=== PATIENT | male | born 1945 | race Caucasian/White ===

== ENCOUNTER 2020-03-08 09:27 | Inpatient (IN) | payer MEDICARE, OTHER ==
[~2020-03-08] VITALS: Ht 170.2 cm; Wt 132.1 kg
[2020-03-08] VITALS (35 sets, daily range): BP systolic 89–125; BP diastolic 59–83
[2020-03-08] MEDS ORDERED: methylPREDNISolone SOD SUCC 125 MG/2 ML VL IV ONE ×2 (09:45→12:45)
[2020-03-08] MEDS ORDERED: cefTRIAXone 1GM/50ML D5W 50 ML IV ONE (09:45)
[2020-03-08] MEDS ORDERED: NOREPINEPHRINE 8 MG/250ML KIT 250 ML IV ONE (10:17)
[2020-03-08 10:32] LABS: Basophils # (auto) 0.1 10 ^3/uL (0-0.2); Basophils % (auto) 0.4 % (0.0-2.0); Eosinophils # (auto) 0 10 ^3/uL (0-0.8); Hemoglobin 13.5 g/dL (13.5-17.5); Lymphocytes # (auto) 0.3 10 ^3/uL (0.4-5.4); Lymphocytes % (auto) 2.3 % (10.0-50.0); Mean Corpuscular Hemoglobin 30.7 pg (28.0-32.0); Mean Corpuscular Hgb Conc. 33.9 g/dL (32.0-36.0); Mean Corpuscular Volume 90.6 fL (80.0-100.0); Monocytes # (auto) 0.7 10 ^3/uL (0-1.3); Monocytes % (auto) 5.3 % (0.0-12.0); Neutrophils # (auto) 12.3 10 ^3/uL (1.6-8.6); Platelet Count (auto) 245 10^3/uL (140-450); Red Blood Cells 4.41 10^6/uL (4.5-5.90); Red Cell Distribution Width 15.9 % (11.8-14.3); White Blood Cell 13.3 10^3/uL (4.4-10.8)
[2020-03-08 10:39] LABS: Calcium 8.2 mg/dL (8.5-10.1); Magnesium 1.9 mg/dL (1.6-2.6); Potassium 4.3 mmol/L (3.5-5.1)
[2020-03-08] MEDS: NOREPINEPHRINE 8 MG/250ML KIT 250 ML IV SCH (10:47)
[2020-03-08 10:48] LABS: BUN/Creatinine Ratio 10.1; Bilirubin, Total 4.1 mg/dL (0.2-1.0); CRP High Sensitivity 2.96 mg/dL (< 0.3); Total Protein 7.9 g/dL (6.4-8.2)
[2020-03-08] MEDS ORDERED: MORPHINE SULF INJ 2 MG/ML SYRINGE 1ML IV PRN (11:45)
[2020-03-08] MEDS ORDERED: NITROGLYCERIN 0.4 MG SL TAB SL PRN (11:45)
[2020-03-08] MEDS ORDERED: SODIUM CHLORIDE 0.9% 500 ML IV ONE (11:45)
[2020-03-08] MEDS ORDERED: METOPROLOL TARTRATE 1MG/1ML-5ML VIAL IV PRN (11:45)
[2020-03-08 11:47] LABS: Lactic Acid w/Reflex 2.5 mmol/L (0.4-2.0)
[2020-03-08] MEDS ORDERED: DIGOXIN (250MCG/ML) 2 ML AMPULE IV ONE (12:00)
[2020-03-08] MEDS ORDERED: AMIODARONE HCL 150 MG in D5W 5% 100 ML IV ONE (12:00)
[2020-03-08] MEDS ORDERED: AMIODARONE 450mg/250ml AE 250 ML IV ONE (12:15)
[2020-03-08] MEDS ORDERED: VANCOMYCIN PER PHARMACY 0 MG IV SCH (12:45)
[2020-03-08] MEDS ORDERED: PIPERACILLIN-TAZOB 2.25GM 50 ML IV ONE (12:45)
[2020-03-08] MEDS ORDERED: ACETAMINOPHEN 500 MG TAB PO PRN (12:45)
[2020-03-08] MEDS ORDERED: LORazepam 2MG/ML-1ML VIAL IV PRN (12:45)
[2020-03-08] MEDS ORDERED: SODIUM CHLORIDE 0.9% 1,000 ML IV SCH (12:45)
[2020-03-08] MEDS ORDERED: MORPHINE SULFATE 4 MG/ML SYR/VIAL IV PRN (12:45)
[2020-03-08] MEDS ORDERED: THIAMINE 100mg/ml INJ (200mg/2ml VIAL) IM ONE (13:00)
[2020-03-08] MEDS ORDERED: ONDANSETRON HCL 4 MG/2 ML VIAL IV PRN (13:00)
[2020-03-08] MEDS ORDERED: DEXTROSE (50%) 50ML SYRG IV PRN (13:15)
[2020-03-08] MEDS ORDERED: ENOXAPARIN SOD 150 MG/1 ML SYRINGE SC ONE (13:15)
[2020-03-08] MEDS ORDERED: VANCOMYCIN 1GM/250ML 250 ML IV ONE (14:00)
[2020-03-08] MEDS ORDERED: ALBUTEROL SULF HFA 90MCG INH 200DOSE IN SCH (14:00)
[2020-03-08] MEDS: methylPREDNISolone SOD SUCC 40 MG/ML VL IV SCH ×2 (14:22→22:00)
[2020-03-08] MEDS ORDERED: THIAMINE 100mg/ml INJ (200mg/2ml VIAL) IV ONE (14:30)
--- NOTE | 2020-03-08 14:50 | NUR ---
See report from ER record in notes.
--- NOTE | 2020-03-08 14:50 | NUR ---
Patients tejeda catheter flushing, reinserted and repositioned to assess patency. Patient has been oliguric since arrival.
--- NOTE | 2020-03-08 14:50 | NUR ---
Patient arrived from ER COVUT 19 isolation transportation. Patient on BIPAP, AO x4, though drowsy. Patient in afib whtih HR 103 RR 30 SPO2 91% BP 101/59 Temp of 98.7F. CHG wipes for central line and midline care, tejeda catheter care and optifoam on sacrum for skin integrity. Lower extremities wounds bilater with feet/toes thick yellow skin. Personal belongings in room.
--- NOTE | 2020-03-08 15:00 | NUR ---
Oral care completed.
--- NOTE | 2020-03-08 15:00 | NUR ---
Oral care completed.
--- NOTE | 2020-03-08 16:00 | NUR ---
Oral care completed.
--- NOTE | 2020-03-08 16:00 | NUR ---
Patient in bed, drowsy but easily arousable. Patient states he has 0/10 pain level. Patient tolerating BIPAP well.
--- NOTE | 2020-03-08 16:27 | NUR ---
RN removed bilateral lower extremity wound dressing to take pictures, redress and clean wounds.
[2020-03-08] MEDS: FUROSEMIDE 20 MG/2 ML VIAL IV SCH (16:54)
--- NOTE | 2020-03-08 17:00 | NUR ---
Son called for update, updated on status. Per son okay to be intubated.
--- NOTE | 2020-03-08 17:30 | NUR ---
Patient calm on Bipap, resting comfortably in no signs of distress. Patient reports 0/10 pain.
[2020-03-08] MEDS ORDERED: ASPI-498 PO (17:42)
[2020-03-08] MEDS ORDERED: SPIR25TA8 PO (17:42)
[2020-03-08] MEDS ORDERED: ATOR20TA50 PO (17:42)
[2020-03-08] MEDS ORDERED: SILD100T73 PO (17:42)
[2020-03-08] MEDS ORDERED: SACU1TAB PO (17:42)
[2020-03-08] MEDS ORDERED: FURO40TA4 PO (17:42)
[2020-03-08] MEDS ORDERED: CHOLCAP11 PO (17:42)
[2020-03-08] MEDS ORDERED: DABI150C5 PO (17:42)
[2020-03-08] MEDS ORDERED: PRAZ2CAP PO (17:42)
[2020-03-08] MEDS ORDERED: CARV12.544 PO (17:42)
[2020-03-08] MEDS: InsuLIN REG 1unit/0.01ml Soln (100units/ml) SC SCH (18:00)
[2020-03-08] MEDS: ACCU-CHEK COMFORT CURVE STRIP VI SCH (18:00)
--- NOTE | 2020-03-08 18:00 | NUR ---
Paged Dr. Garcia.
--- NOTE | 2020-03-08 18:00 | NUR ---
Oral care completed. Patient repositioned.
--- NOTE | 2020-03-08 18:00 | NUR ---
Patient stated [facility] and between his son and roommate they are trying to get it to the unit.
[2020-03-08] MEDS ORDERED: AMIODARONE 450mg/250ml AE 250 ML IV SCH (18:15)
--- NOTE | 2020-03-08 18:30 | NUR ---
RN spoke with son on phone, he is unaware of medications patient takes on daily basis, he is [facility] to [facility].
--- NOTE | 2020-03-08 19:18 | NUR ---
RN spoke with Nichole RAMIREZ ER, regarding orders for Amiodarone IV, Per Nichole the physician did not clarify the specific protocol or order. The physician has not seen the patient yet and per his answering service, he will be out of surgery in two hours. P.M. RN bedside, endorsed to speak with physician.
--- NOTE | 2020-03-08 19:30 | NUR ---
Report given to Fabricio RAMIREZ Patient remians on BiPAP, SPO2 90%, RR 28, non labored breathing. Patient remains in Afib with rate o 85-103, orders for Amiodarone after the current bag will be confirmed with investment accountant after he is out of surgery. Patients orientation had increased since arrival on unit, AO x3 person, situation, place. Patient is unable to eat d/t Bipap. Oral care completed. Tavarez catheter to gravity, 450 ml output. BM small smear, active bowel sounds. Patient has lower extremity wounds, wound consult order. Patient is calm and tolerating BIPAP well.
--- NOTE | 2020-03-08 19:56 | NUR ---
Per Dr. Garcia, patient is to be on Amiodarone protocol, 24 hours. Also new order for Pulmonary Consult, Dr. Byers is on unit and will see patient.
[2020-03-08] MEDS: PIPERACILLIN-TAZOB 3.375GM 100 ML IV SCH (20:06)
[2020-03-08] MEDS: AMIODARONE 450mg/250ml AE 250 ML IV SCH (21:09)
[2020-03-08] MEDS ORDERED: ENOXAPARIN SOD 150 MG/1 ML SYRINGE SC SCH (22:00)
[2020-03-08] MEDS ORDERED: BUDESONIDE (INHALATION) 180 MCG IH IN SCH (22:00)
[2020-03-08] MEDS: ATORVASTATIN 20 MG TAB PO SCH (22:00)
[2020-03-08] MEDS: FAMOTIDINE (10MG/ML) 2ML VL IV SCH (22:00)
--- NOTE | 2020-03-08 23:00 | NUR ---
Respiratory note: PT TAKEN OFF BIPAP AT THIS TIME. PLACED PT ON A 15L NRB MASK AT FIRST AND SP02 WAS 100%. PT TITRATED DOWN TO AN OXYMIZER AT 6L AND TOLERATING WELL. HR 95 RR 26 SP02 96%. PT STATING THAT HIS BREATHING FEELS GOOD AND GAVE A THUMBS UP. HE IS AWARE TO CALL FOR RN OR RT IF ANY ISSUES WITH HIS BREATHING OCCUR.
[2020-03-09] VITALS (89 sets, daily range): BP systolic 85–132; BP diastolic 46–95
[2020-03-09] MEDS: InsuLIN REG 1unit/0.01ml Soln (100units/ml) SC SCH ×4 (00:59→18:23)
[2020-03-09] MEDS: PIPERACILLIN-TAZOB 3.375GM 100 ML IV SCH ×4 (01:00→18:13)
[2020-03-09 04:04] LABS: Basophils # (auto) 0 10 ^3/uL (0-0.2); Basophils % (auto) 0.1 % (0.0-2.0); Eosinophils # (auto) 0 10 ^3/uL (0-0.8); Hematocrit 42.4 % (41.0-53.0); Hemoglobin 14.6 g/dL (13.5-17.5); Lymphocytes # (auto) 0.4 10 ^3/uL (0.4-5.4); Lymphocytes % (auto) 2.8 % (10.0-50.0); Mean Corpuscular Hemoglobin 31.3 pg (28.0-32.0); Mean Corpuscular Hgb Conc. 34.4 g/dL (32.0-36.0); Mean Corpuscular Volume 90.9 fL (80.0-100.0); Monocytes # (auto) 0.4 10 ^3/uL (0-1.3); Monocytes % (auto) 2.4 % (0.0-12.0); Neutrophils % (auto) 94.7 % (37.0-80.0); Nucleated Red Blood Cells % 0.1 %; Platelet Count (auto) 238 10^3/uL (140-450); Red Blood Cells 4.67 10^6/uL (4.5-5.90); Red Cell Distribution Width 16.2 % (11.8-14.3); White Blood Cell 14.8 10^3/uL (4.4-10.8)
[2020-03-09 04:21] LABS: Potassium 4.1 mmol/L (3.5-5.1)
[2020-03-09 04:31] LABS: Albumin 2.8 g/dL (3.4-5.0); BUN/Creatinine Ratio 13.4; Bilirubin, Total 3.6 mg/dL (0.2-1.0); Total Protein 7.8 g/dL (6.4-8.2)
[2020-03-09] MEDS ORDERED: VANCOMYCIN 1GM/250ML 250 ML IV SCH (06:00)
[2020-03-09] MEDS: FUROSEMIDE 20 MG/2 ML VIAL IV SCH ×2 (06:28→18:13)
[2020-03-09] MEDS: ACCU-CHEK COMFORT CURVE STRIP VI SCH ×4 (06:29→18:14)
[2020-03-09] MEDS: methylPREDNISolone SOD SUCC 40 MG/ML VL IV SCH (06:29)
--- NOTE | 2020-03-09 07:05 | NUR ---
Respiratory note: ORDER FOR MORNING ABG. PT IS REFUSING ABG. EDUCATED PT ON TEST AND WHY IT IS BENEFICIAL. PT STILL REFUSING. RN AWARE.
--- NOTE | 2020-03-09 08:30 | NUR ---
UNABLE TO OBTAIN TEMP ON PATIENT THIS AM - DAVIDSON ROY - WILL CONTINUE TO MONITOR TEMP.
--- NOTE | 2020-03-09 08:45 | NUR ---
DR GAUTHIER VISITS AND EXAMINES PATIENT - ORDERS RECEIVED.
[2020-03-09] MEDS ORDERED: ASCORBIC ACID 1,000 MG TAB PO SCH (10:00)
[2020-03-09] MEDS ORDERED: ZINC SULFATE 220mg CAP or TAB PO SCH (10:00)
[2020-03-09] MEDS ORDERED: CHOLECALCIFEROL (VITD3) 2,000 UNIT CAP PO SCH (10:00)
[2020-03-09] MEDS: NOREPINEPHRINE 8 MG/250ML KIT 250 ML IV SCH (10:15)
[2020-03-09] MEDS: FAMOTIDINE (10MG/ML) 2ML VL IV SCH ×2 (10:22→21:55)
[2020-03-09] MEDS: THIAMINE 100mg/ml INJ (200mg/2ml VIAL) IV SCH (10:23)
[2020-03-09] MEDS: AMIODARONE HCL 200 MG TAB PO SCH ×2 (10:27→21:55)
--- NOTE | 2020-03-09 10:30 | NUR ---
DR HOUSER VISITS AND EXAMINES PATIENT - ORDERS RECEIVED.
[2020-03-09] MEDS: AMIODARONE 450mg/250ml AE 250 ML IV SCH (10:34)
[2020-03-09] MEDS ORDERED: DOXYCYCLINE 100MG/250ML 250 ML IV SCH (10:45)
[2020-03-09] MEDS ORDERED: ENOXAPARIN SOD 150 MG/1 ML SYRINGE SC ONE (11:00)
--- NOTE | 2020-03-09 13:30 | NUR ---
DR RIBERA VISITS AND EXAMINES PATIENT - NO ORDERS RECEIVED.
--- NOTE | 2020-03-09 14:00 | NUR ---
TEMP NORMOTHERMIC - BEAR HUGGER REMOVED.
--- NOTE | 2020-03-09 14:15 | NUR ---
WOUND CARE NOTE: WOUND CARE IN TO SEE PATIENT PER WOUND CARE REQUEST. PATIENT ADMITTED TO [facility] FOR SUSPECTED SEPSIS SECONDARY TO ACUTE BILATERAL PNEUMONIA, RULE OUT COVID-19 INFECTION. BEDSIDE NURSE NOTED SKIN INTEGRITY ISSUES UPON ADMISSION. PHOTOGRAPHS TAKEN AT THAT TIME FOR REFERENCE. PATIENT HEATHER SCORE IS 13. PATIENT NOTED TO HAVE STASIS ULCERS TO BILATERAL SHINS, SKIN TEAR TO RIGHT KNEE, AND BLANCHABLE REDNESS TO SACRUM. LEFT DE [place] STASIS ULCER COVERED WITH THERAHONEY AND OPTIFOAM GENTLE DRESSING. RIGHT [place] LEFT OPEN TO AIR. RIGHT KNEE COVERED WITH THERAHONEY AND OPTIFOAM GENTLE DRESSING. SACRUM COVERED WITH ZGUARD AND OPTIFOAM GENTLE SACRAL DRESSING. ALL WOUND STATS CAN BE FOUND IN ATTACHED ASSESSMENT. RECOMMEND: FREQUENT Q2HOUR REPOSITIONING CONDITION PERMITS. REDISTRIBUTE PRESSURE UTILIZING PILLOWS AND WEDGES. DAILY/PRN DRESSING CHANGE TO LEFT DE [place], RIGHT KNEE AND SACRUM. SKIN/WOUND CARE PLAN. CONTINUED MONITORING BY WOUND CARE TEAM. Addendum: 03/09/20 at 1619 by HALLIE CASH RN RN Amended: Links added.
--- NOTE | 2020-03-09 20:05 | NUR ---
DR WASHINGTON AT BEDSIDE. NO NEW ORDERS
[2020-03-09] MEDS: ATORVASTATIN 20 MG TAB PO SCH (21:55)
[2020-03-09] MEDS: DABIGATRAN 75 MG CAP PO SCH (21:56)
[2020-03-10] VITALS (55 sets, daily range): BP systolic 96–131; BP diastolic 61–92
--- NOTE | 2020-03-10 00:44 | NUR ---
CARES FULL BED LINEN CHANGE, APPLIED OPTIFOAM TO SACRUM, WOUND CARE PROVIDED ORDERED MINUS UNNA BOOT (WILL REINFORCE TO DAY SHIFT RN TO ASK WOUND CARE NURSE TO BRING UNNA BOOTS.) PATIENT WAS ABLE TO GET OUT BED WITH ASSIST AND BALANCE HIMSELF ON HIS OWN FEET WHILE HOLDING ONTO BED RAIL. PATIENT DID HAVE LABORED BREATHING WITH PHYSICAL EXERTION, IT TOOK 15 MIN TO RECOVER TO HIS BASELINE. PATIENT HAD TWO LIQUID BROWN BOWEL MOVEMENT SINCE THE BEGINNING OF [facility] SOLUTION ARCHITECT, PATIENT CALLS TO USE BEDPAN. PATIENT RESTING IN BED WATCHING TV, CALL LIGHT WITHIN REACH, VERBALIZED UNDERSTANDING TO CALL IF HE NEEDS ANYTHING.
[2020-03-10] MEDS: PIPERACILLIN-TAZOB 3.375GM 100 ML IV SCH ×4 (00:48→18:53)
[2020-03-10] MEDS: InsuLIN REG 1unit/0.01ml Soln (100units/ml) SC SCH ×4 (00:49→18:00)
--- NOTE | 2020-03-10 01:30 | NUR ---
SENT WOUND CULTURES TO LAB COLLECTED CULTURES FROM RIGHT AND LEFT LEG.
--- NOTE | 2020-03-10 02:00 | NUR ---
ADMISSION PATIENT UNABLE TO RECALL FAMILY HISTORY, STATES THAT HIS PARENTS PAST WHEN HE WAS YOUNG.
--- NOTE | 2020-03-10 02:11 | NUR ---
PATIENT OUT OF BED, SITTING IN A CHAIR. TRANSFERRED FROM BED INTO CHAIR WITH MODERATE ASSISTANCE.
[2020-03-10] MEDS: DOXYCYCLINE 100MG/250ML 250 ML IV SCH ×2 (03:10→15:00)
--- NOTE | 2020-03-10 04:20 | NUR ---
MAROON BLOOD AND BLOOD CLOTS NOTED IN [place]. URINE WAS DARK BARBARA IN A BEGINNING OF THE SHIFT. WILL NOTIFY DAY SHIFT RN OF FINDING.
[2020-03-10] MEDS: FUROSEMIDE 20 MG/2 ML VIAL IV SCH (05:38)
[2020-03-10] MEDS: ACCU-CHEK COMFORT CURVE STRIP VI SCH ×4 (05:40→18:00)
--- NOTE | 2020-03-10 06:49 | NUR ---
RECEIVED PT OFF BIPAP ON 6L OXYMIZER WITH SPO2 96%, HR 79, RR 18, BP 116/79 CLEAR/DIMINISHED BS WITH NO DISTRESS NOTED. WILL CONTINUE TO MONITOR PT.
--- NOTE | 2020-03-10 07:00 | NUR ---
ABG, patient refused Per p.m. nurse, patient has had ABG injury to his wrist and refused ABG during p.m. shift, Dr. Regalado aware, no further ABG's at this time.
--- NOTE | 2020-03-10 07:00 | NUR ---
REPORT RN received bedside report from Marcelino RAMIREZ. Patien up to chair, in no signs of distress, watching televisiion. Patient on Oxymizer 6L, SPO2 96%, RR 25. No longer on Amiodarone or Levophed, HR 79, afib controlled. Patient had two BM liquid brown stools on p.m. shift. Tavarez catheter to gravity, clear yellow urine, output pm. shift 950 ml, patient is on Lasix. Patient seen by wound nurse and match maker. Wound care orders for bilateral lower extremities. IV access: right femoral groin central line 3x lumen, and right upper arm midline. Zosyn at 33.33 ml/hr infusing at this time.
--- NOTE | 2020-03-10 08:00 | NUR ---
Patient up to chair, states he feels he can breathe and urinate better when in chair. Patient alert, oriented and calm. Patients skin color, respiratory pattern and energy is where the patient states he usually feels. RN completed bilateral lower extremity wound care, cleaning, xeroform and redressed gauze. Miminal drainage, surrounding skin red/purple and cool. Feet have thick yellow skin, Patient able to move both feet. Patient states he has had long history of substance and ETOH abuse, but has stopped three years ago. Patient teaching regarding COPD, CHF and weight management. RN spoke with patient regarding exercise plan, use of Incentive Spirometer to optimize lung and heart function. Patient is eager to learn and wants to improve his quality of life.
--- NOTE | 2020-03-10 08:27 | NUR ---
Phone call from Dr. Man's office regarding referral to see patient, GI. Dr. Mna will be seeing the patient today.
[2020-03-10] MEDS: THIAMINE 100mg/ml INJ (200mg/2ml VIAL) IV SCH (09:52)
[2020-03-10] MEDS: FAMOTIDINE (10MG/ML) 2ML VL IV SCH ×2 (09:52→21:14)
[2020-03-10] MEDS: AMIODARONE HCL 200 MG TAB PO SCH ×2 (09:53→21:14)
[2020-03-10] MEDS: DABIGATRAN 75 MG CAP PO SCH ×2 (09:53→21:14)
--- NOTE | 2020-03-10 09:53 | NUR ---
Patient remains in chair. AO x4, no S/S of distress.
--- NOTE | 2020-03-10 10:10 | NUR ---
Patient teaching Active ROM while sitting in chair, focused on lower extremities to promote blood return to the heart. Will encourage patient to reposition every hour and complete active ROM to lower extremities.
--- NOTE | 2020-03-10 10:15 | NUR ---
Titrated O2 to 3L .
--- NOTE | 2020-03-10 10:27 | NUR ---
Personal Belongings RN went through belongings received in ICU from ER, valuable form. RN found black knife with sheath on it. Per commissioning engineer, will call Intensive Care Specialist to discuss where to keep the knife until the patient is discharge. Changes from the original valuable form: guerra $140, flashlight, air nozzle, 2 sets of keys, and black knife - all found in front pockets of patient margarito. Patient signed valuable form.
--- NOTE | 2020-03-10 10:43 | NUR ---
INCENTIVE SPIROMETRY RN and patient 10x 2250 . Patient is able to verbally teachback instructions for use and benefits.
[2020-03-10 10:52] LABS: Basophils # (auto) 0 10 ^3/uL (0-0.2); Eosinophils # (auto) 0 10 ^3/uL (0-0.8); Hematocrit 42.6 % (41.0-53.0); Hemoglobin 14.2 g/dL (13.5-17.5); Lymphocytes # (auto) 0.6 10 ^3/uL (0.4-5.4); Lymphocytes % (auto) 3.9 % (10.0-50.0); Mean Corpuscular Hemoglobin 30.6 pg (28.0-32.0); Mean Corpuscular Hgb Conc. 33.3 g/dL (32.0-36.0); Mean Corpuscular Volume 91.8 fL (80.0-100.0); Monocytes # (auto) 0.8 10 ^3/uL (0-1.3); Monocytes % (auto) 4.9 % (0.0-12.0); Neutrophils # (auto) 14.3 10 ^3/uL (1.6-8.6); Neutrophils % (auto) 91.2 % (37.0-80.0); Platelet Count (auto) 274 10^3/uL (140-450); Red Blood Cells 4.64 10^6/uL (4.5-5.90); Red Cell Distribution Width 16.6 % (11.8-14.3); White Blood Cell 15.7 10^3/uL (4.4-10.8)
[2020-03-10 11:08] LABS: Albumin 3.1 g/dL (3.4-5.0); Calcium 8.4 mg/dL (8.5-10.1); Potassium 4.1 mmol/L (3.5-5.1)
[2020-03-10 11:14] LABS: BUN/Creatinine Ratio 18.3; Bilirubin, Total 2.3 mg/dL (0.2-1.0); Total Protein 8.6 g/dL (6.4-8.2)
--- NOTE | 2020-03-10 11:18 | NUR ---
Dr. Freeman walker [facility] for update on patient and exam. New order for arterial doppler study. New order for downgrade to telemetry.
--- NOTE | 2020-03-10 11:22 | NUR ---
Dr. Man ordered abdominal xray.
--- NOTE | 2020-03-10 11:30 | NUR ---
INCENTIVE SPIROMETRY Patient completed 10x. Follows directions well and vocalizes benefits.
--- NOTE | 2020-03-10 12:23 | NUR ---
Patient remains up to chair. No S/S of distress.
--- NOTE | 2020-03-10 12:40 | NUR ---
Titrated O2 2 L.
--- NOTE | 2020-03-10 13:30 | NUR ---
INCENTIVE Spirometer Patient tolerated 10x,able to verbalize understanding of method and purpose.
--- NOTE | 2020-03-10 13:57 | NUR ---
Patient from chair to bed for BM. Patient SOB on exertion, RN increased O2 to 6L. Patient on bed with bedpan at this time.
--- NOTE | 2020-03-10 14:57 | NUR ---
Patient has hematuria in urine. Patient states his baseline urine is the same. In the a.m. when he takes his lasix, the urine is clear and yellow, by the afternoon it is dark diana with blood product sediment. Patient reports he has never had ian blood in his urine.
--- NOTE | 2020-03-10 15:03 | NUR ---
Patient states that he wants to be discharged by . Patient stated that desire to Dr. Romo also. Patient teaching regarding need to follow through with treatment, especially as he experiences significant SOB on exertion.
--- NOTE | 2020-03-10 15:06 | NUR ---
Patient broke his large toenail (diseased) in half when ambulating from chair to bed. RN completed wrapping of right big toe for comfort.RN could not visualize any trauma to the nail bed as far as bleeding.
--- NOTE | 2020-03-10 15:30 | NUR ---
Ultrasound bedside Venous study, bilateral lower extremties bedside.
--- NOTE | 2020-03-10 16:18 | NUR ---
Patient in bed, sleeping sitting up. Patient is NPO at this time until his abdominal ultrasound after 1900 tonight.
--- NOTE | 2020-03-10 16:30 | NUR ---
ERICKA BOOT ORDER RN spoke with wound RN. Per corporate policy no inpatient unna boots are available, but if patient is ambulatory upon discharge then the patient may leave with them.
--- NOTE | 2020-03-10 16:34 | NUR ---
Called Dr. Tolbert regarding unna boot order Talked with physicians nurse to let her know [facility] policy for no unna boot placement d/t pressure injuries while the patient is admitted. RN seeks alternative and/or to let him know. RN will wait for phone call back.
--- NOTE | 2020-03-10 16:39 | NUR ---
WOUND DRESSING NEW ORDER Dr. Tolbert returned call to RN. Instead of unna boot placement, cover xeroform that is over the wound, with 4 x 4 dressing for wound drainage, then wrap patients leg with Koban. Will inform wound RN of order.
--- NOTE | 2020-03-10 17:02 | NUR ---
RN redress bilateral leg wounds with Dr. Tolbert new order for 4 x 4 over xeroform wounds and then koban instead of unna boot. RN covered leg with stocknet. Minimal serous drainage bilaterally.
--- NOTE | 2020-03-10 17:27 | NUR ---
Report given to Ethel RAMIREZ RM 218 B. RN sending respiratory sample.
--- NOTE | 2020-03-10 17:45 | NUR ---
Patient on bedpan at this time.
--- NOTE | 2020-03-10 17:45 | NUR ---
END OF SHIFT Patient in bed after most of day in chair. On 3L oxymizer SPO2 94%, RR 24-36. Spontaneous cough, sample sent to lab. Patient AOx4, afebrile, moves all extremites. HR 70-80's , afib, controlled. Pullses doppler bilater lower extremities. 2 BM today, large, liquid brown, strong smell. Tavarez catheter to gravity, hematuria in urine by end of shift, dark diana with sediments. Total 1150 output. IV access femoral groin, right 3x lumen, right upper arm midline 10g. Endorse care to Telemetry nurse.
--- NOTE | 2020-03-10 18:00 | NUR ---
RECEIVED TRANSFER FROM ICU Received patient from production internship, awake, A/O x4. Denies pain at this time, no SOB or s/s distress noted. On 3L oxymizer SPO2 94%. Tavarez catheter to gravity, hematuria in urine, dark diana with sediments noted. IV access femoral groin, right 3x lumen, right upper arm midline 10g. Patient encouraged to call for assistance prn. Bed in low and locked position, will continue to monitor q1hr and prn.
--- NOTE | 2020-03-10 20:17 | NUR ---
HEMATURIA PATIENT NOTED TO HAVE FLORES RED URINE IN [place] CATHETER. PER PATIENT, AT HOME HIS URINE IS DARK BARBARA BUT SINCE THIS HOSPITAL STAY, URINE HAS BECOME INCREASINGLY RED. HAND LASTER HOSPITALIST LISA RAYGOZA. PER STEEL INSPECTOR, OBTAIN URINE CX AND UA, HOLD PRADAXA, AND NOTIFY DAY SHIFT TEAM TOMORROW MORNING.
[2020-03-10] MEDS: ATORVASTATIN 20 MG TAB PO SCH (21:14)
[2020-03-10 22:24] LABS: Urine Bacteria NONE SEEN /hpf (None Seen); Urine Blood 3+ /uL (Negative); Urine WBC 830 /hpf (0 - 3); Urine WBC Clumps PRESENT /hpf (None Seen)
[2020-03-11] MEDS: ACCU-CHEK COMFORT CURVE STRIP VI SCH ×5 (00:01→23:48)
[2020-03-11] MEDS: PIPERACILLIN-TAZOB 3.375GM 100 ML IV SCH ×2 (00:01→05:41)
[2020-03-11] MEDS: DOXYCYCLINE 100MG/250ML 250 ML IV SCH ×2 (01:45→14:23)
[2020-03-11 05:47] VITALS: BP 111/70
[2020-03-11] MEDS: InsuLIN REG 1unit/0.01ml Soln (100units/ml) SC SCH ×5 (05:47→23:49)
[2020-03-11 08:00] VITALS: BP 122/79
--- NOTE | 2020-03-11 08:00 | NUR ---
Opening Shift Note Assumed care of patient, awake and alert, ultrasound in the room. No S/S of distress/SOB or pain. 300mL red tinged urine noted in the Tavarez. Mid line and triple lumen catheter in the right groin area were flushed at this time. All lines are patent and in tact. Instructed on POC and to call for assist PRN. Patient verbalized understanding. Bed is in lowest position and the call light is within reach of the patient. Will continue to monitor for changes Q1hr and PRN.
--- NOTE | 2020-03-11 08:37 | NUR ---
O2 Titration Titrated pt to 2L via oxymizer from 3L via oxymizer. No s/s of distress or SOB. Will continue to monitor O2 needs.
[2020-03-11 09:00] VITALS: BP 122/79
[2020-03-11] MEDS: AMIODARONE HCL 200 MG TAB PO SCH ×2 (09:59→21:52)
[2020-03-11] MEDS ORDERED: FUROSEMIDE 20 MG/2 ML VIAL IV SCH (10:00)
[2020-03-11] MEDS: DABIGATRAN 75 MG CAP PO SCH (10:00)
[2020-03-11] MEDS ORDERED: FAMOTIDINE (10MG/ML) 2ML VL IV SCH (10:00)
--- NOTE | 2020-03-11 11:07 | NUR ---
Oxygenation Placed pt on 2L via NC per MD's request. Will asses pt's O2 needs. Will continue to monitor.
--- NOTE | 2020-03-11 11:10 | NUR ---
Respiratory note: PT TAKEN OFF O2 FOR RA ABG. PT'S POX MAINTAINING AT 95%. NOTIFIED PT THAT RT WAS GOING TO COME BACK IN 15 MIN. TO CHECK POX AGAIN.
--- NOTE | 2020-03-11 11:25 | NUR ---
Respiratory note: UNABLE TO OBTAIN ABG AT THIS TIME PT WAS TAKEN TO A PROCEDURE. RN AWARE.
[2020-03-11] MEDS ORDERED: FUROSEMIDE 20 MG/2 ML VIAL IV ONE (11:45)
--- NOTE | 2020-03-11 12:29 | NUR ---
Nutrition Assessment Notes Please refer to link for full assessment notes. Est Energy needs: 7848-9726 kcals (12-15 kcal/kgBW) Est Protein needs: 106-119 gms/day (0.8-0.9 gm/kgBW) d/t pt elev RFTs Will continue to monitor and reassess prn. Addendum: 03/11/20 at [address] Amended: Links added.
[2020-03-11 13:05] LABS: Basophils # (auto) 0 10 ^3/uL (0-0.2); Basophils % (auto) 0.1 % (0.0-2.0); Eosinophils # (auto) 0 10 ^3/uL (0-0.8); Eosinophils % (auto) 0.2 % (0.0-7.0); Hematocrit 45.6 % (41.0-53.0); Hemoglobin 15.2 g/dL (13.5-17.5); Lymphocytes # (auto) 1.1 10 ^3/uL (0.4-5.4); Lymphocytes % (auto) 10.4 % (10.0-50.0); Mean Corpuscular Hemoglobin 30.7 pg (28.0-32.0); Mean Corpuscular Hgb Conc. 33.3 g/dL (32.0-36.0); Mean Corpuscular Volume 92.2 fL (80.0-100.0); Monocytes % (auto) 9.3 % (0.0-12.0); Neutrophils # (auto) 8.2 10 ^3/uL (1.6-8.6); Nucleated Red Blood Cells % 0.1 %; Platelet Count (auto) 294 10^3/uL (140-450); Red Blood Cells 4.94 10^6/uL (4.5-5.90); Red Cell Distribution Width 16.5 % (11.8-14.3); White Blood Cell 10.3 10^3/uL (4.4-10.8)
--- NOTE | 2020-03-11 13:12 | NUR ---
Pt to NM Pt taken to NM via wheelchair. Pt is a/ox4 with no s/s of distress. Addendum: 03/11/20 at 1421 by JAYNE ALBARRAN RN RN Pt back on unit
[2020-03-11 13:17] VITALS: BP 112/72
[2020-03-11 13:19] LABS: INR 1.29 (0.9-1.15)
[2020-03-11 13:46] LABS: BUN/Creatinine Ratio 21.9; Calcium 9.3 mg/dL (8.5-10.1)
--- NOTE | 2020-03-11 14:40 | NUR ---
Dr. Man at bedside Dr. Man at beside discussing the plan of care with the patient. Patient verbalizing understanding and all questions were answered at this time.
--- NOTE | 2020-03-11 15:00 | NUR ---
Respiratory note: PT STILL NOT BACK IN ROOM FOR RA ABG. WILL CONTINUE TO CHECK.
--- NOTE | 2020-03-11 15:33 | NUR ---
assessment Patient has no post discharge needs identified at this time. Addendum: 03/11/20 at 1533 by Maddison LORENZO Amended: Links added.
--- NOTE | 2020-03-11 16:20 | NUR ---
Respiratory note: PT IS BACK IN ROOM. PT TAKEN OFF O2 FOR RA ABG. POX MAINTAINING AT 95%. WILL BE BACK IN 15 MIN TO CHECK POX AGAIN.
--- NOTE | 2020-03-11 16:35 | NUR ---
Respiratory note: CHECKED ON PT'S POX STILL MAINTAINING IN THE LOW 90'S. PT STATED HE DID NOT WANT ME TO DRAW THE ABG. RN NOTIFIED.
[2020-03-11 16:42] VITALS: BP 100/59
--- NOTE | 2020-03-11 17:06 | NUR ---
Tejeda catheter dc'd Order to discontinue tejeda catheter. Tejeda dc'd with clean technique following deflation of balloon. Patient tolerated well with no complaints of pain. Continue care.
[2020-03-11] MEDS: ATORVASTATIN 20 MG TAB PO SCH (21:52)
[2020-03-11 22:00] VITALS: BP 115/76
[2020-03-12] MEDS: DOXYCYCLINE 100MG/250ML 250 ML IV SCH (02:00)
[2020-03-12 05:00] VITALS: BP 132/72
[2020-03-12] MEDS: ACCU-CHEK COMFORT CURVE STRIP VI SCH (05:58)
[2020-03-12] MEDS: InsuLIN REG 1unit/0.01ml Soln (100units/ml) SC SCH (05:59)
--- NOTE | 2020-03-12 07:40 | NUR ---
end of shift note endorse pt care to day shift RN . pt a0x4 , no s/s of distress or sob
[2020-03-12 09:05] LABS: Hepatitis B Surface Antibody Negative
--- NOTE | 2020-03-12 09:05 | NUR ---
Per patient he wants to leave AMA, patient states he doesn't need to be here and he already talked to his [facility] doctor who he stated told him "I don't need to be here, because they already know everything that [facility] found", patient states he already made an appointment and his doctor wants to see him. Patient was educated on risks of leaving AMA, patient does not want to wait for the Dr, patient states either we take out the IV lines or he'll take them out himself. Per patient x2 IV lines DC's, pressure applied no bleeding noted at site, no hematoma, pressure dressing applied to right groin access site.
--- NOTE | 2020-03-12 09:35 | NUR ---
Patient left AMA and ambulated out to main entrance with belongings in hand.
[2020-03-12 09:41] LABS: Hepatitis A Total Antibody Negative
[2020-03-12] MEDS ORDERED: FUROSEMIDE 20 MG/2 ML VIAL IV SCH (10:00)
[2020-03-12 10:06] LABS: Hepatitis B Core Total AB Negative
[2020-03-12 10:07] LABS: Hepatitis B Surface Antigen Negative (Negative); Hepatitis C Antibody Negative (Negative)
== END 2020-03-12 09:30 | disposition left against medical advice (07) | DRG 871 ==
LOC: ER 09:27 → EDBD 09:27 → TELE 09:28 → ICU WEST 16:27 → TELE-CENTR 03-10 17:57
PROVIDERS: ADMIT Hospitalist; ATTEND Internal Medicine Nephrology
PROC: 5A09357 Assistance with Respiratory Ventilation, Less than 24 Consecutive Hours, Continuous Positive Airway Pressure (ICD-10-PCS; principal; 2020-03-08)
DX: A41.9 Sepsis, unspecified organism (principal); J96.21 Acute and chronic respiratory failure with hypoxia; N17.0 Acute kidney failure with tubular necrosis; R65.21 Severe sepsis with septic shock; J15.6 Pneumonia due to other Gram-negative bacteria; I50.23 Acute on chronic systolic (congestive) heart failure; I21.A1 Myocardial infarction type 2; I13.0 Hypertensive heart and chronic kidney disease with heart failure and stage 1 through stage 4 chronic kidney disease, or unspecified chronic kidney disease; E44.0 Moderate protein-calorie malnutrition; E87.1 Hypo-osmolality and hyponatremia; I48.19 Other persistent atrial fibrillation; J44.0 Chronic obstructive pulmonary disease with (acute) lower respiratory infection; E87.3 Alkalosis; L03.116 Cellulitis of left lower limb; L03.115 Cellulitis of right lower limb; D68.4 Acquired coagulation factor deficiency; Z68.42 Body mass index [BMI] 45.0-49.9, adult; Z20.828 Contact with and (suspected) exposure to other viral communicable diseases; Z53.29 Procedure and treatment not carried out because of patient's decision for other reasons; E11.22 Type 2 diabetes mellitus with diabetic chronic kidney disease; E66.01 Morbid (severe) obesity due to excess calories; F17.200 Nicotine dependence, unspecified, uncomplicated; I25.10 Atherosclerotic heart disease of native coronary artery without angina pectoris; N18.9 Chronic kidney disease, unspecified; R31.9 Hematuria, unspecified; K80.20 Calculus of gallbladder without cholecystitis without obstruction; Z91.81 History of falling
CPT/HCPCS: 36415; 36600; 51702; 71045; 76700; 78226; 80048; 80053; 81001; 82728; 82805; 82962; 83605; 83615; 83735; 83880; 84443; 84484; 85025; 85379; 85610; 86141; 86704; 86706; 86708; 86803; 87040; 87070; 87077; 87081; 87086; 87186; 87205; 87340; 87426; 93005; 93306; 93926; 93970; 94660; 96365; 96366; 96367; 96368; 96375; 99291; G0378; J0696; J1815; J2543; J3490; J7060

== ENCOUNTER 2020-09-20 00:51 | Inpatient (IN) | payer OTHER, MEDICARE ==
[~2020-09-20] VITALS: Ht 185.4 cm; Wt 104.9 kg
[~2020-09-20 00:51] MED LIST: ATOR20TA50 PO; CARV12.544 PO; CHOLCAP11 PO; DABI150C5 PO; FURO40TA4 PO; PRAZ2CAP PO; SACU1TAB PO; SILD100T73 PO; SPIR25TA8 PO
[2020-09-20 01:46] LABS: Eosinophils # (auto) 0.1 10 ^3/uL (0-0.8); Hemoglobin 11.6 g/dL (13.5-17.5); Monocytes # (auto) 0.4 10 ^3/uL (0-1.3); White Blood Cell 5.7 10^3/uL (4.4-10.8)
[2020-09-20 01:47] LABS: Basophils # (auto) 0.1 10 ^3/uL (0-0.2); Basophils % (auto) 0.9 % (0.0-2.0); Eosinophils % (auto) 1.8 % (0.0-7.0); Hematocrit 35.1 % (41.0-53.0); Lymphocytes # (auto) 0.4 10 ^3/uL (0.4-5.4); Lymphocytes % (auto) 7.9 % (10.0-50.0); Mean Corpuscular Hemoglobin 30.2 pg (28.0-32.0); Mean Corpuscular Hgb Conc. 33.1 g/dL (32.0-36.0); Mean Corpuscular Volume 91.2 fL (80.0-100.0); Monocytes % (auto) 7.1 % (0.0-12.0); Neutrophils # (auto) 4.7 10 ^3/uL (1.6-8.6); Neutrophils % (auto) 82.3 % (37.0-80.0); Nucleated Red Blood Cells % 0.2 %; Platelet Count (auto) 545 10^3/uL (140-450); Red Blood Cells 3.85 10^6/uL (4.5-5.90); Red Cell Distribution Width 15.6 % (11.8-14.3)
[2020-09-20 02:06] LABS: INR 1.63 (0.9-1.15); Partial Thromboplastin Time 59.3 sec (23.0-31.2)
[2020-09-20 03:00] LABS: Albumin 2.6 g/dL (3.4-5.0); Anion Gap 8 (5-15); Blood Urea Nitrogen 47 mg/dL (7-18); Calcium 8.4 mg/dL (8.5-10.1); Carbon Dioxide 17 mmol/L (21-32); Chloride 113 mmol/L (98-107); Glucose 95 mg/dL (74-106); Magnesium 2.3 mg/dL (1.6-2.6); Potassium 5.2 mmol/L (3.5-5.1); Sodium 138 mmol/L (136-145)
[2020-09-20 03:05] LABS: Alanine Aminotransferase 10 U/L (16-61); Alkaline Phosphatase 81 U/L (45-117); Aspartate Aminotransferase 12 U/L (15-37); BUN/Creatinine Ratio 22.2; Bilirubin, Total 0.7 mg/dL (0.2-1.0); GFR African American 39 mL/min; GFR Non-African American 33 mL/min; Total Protein 8.4 g/dL (6.4-8.2)
[2020-09-20] MEDS ORDERED: fentaNYL CITRATE 100 MCG/2 ML VL IV ONE (03:45)
[2020-09-20] MEDS ORDERED: ONDANSETRON HCL 4 MG/2 ML VIAL IV ONE ×3 (03:45→14:30)
[2020-09-20] MEDS ORDERED: ONDANSETRON HCL 4 MG/2 ML VIAL ONE (03:46)
[2020-09-20] MEDS ORDERED: CIPROFLOXACIN 400MG/200ML 200 ML IV ONE (11:15)
[2020-09-20] MEDS ORDERED: MORPHINE SULFATE 4 MG/ML SYR/VIAL IV ONE (11:15)
[2020-09-20] MEDS ORDERED: MORPHINE SULF INJ 2 MG/ML SYRINGE 1ML IV PRN ×3 (12:30→18:30)
[2020-09-20] MEDS ORDERED: NITROGLYCERIN 0.4 MG SL TAB SL PRN ×2 (12:30→18:30)
[2020-09-20] MEDS ORDERED: MORPHINE SULF INJ 2 MG/ML SYRINGE 1ML IV ONE (14:30)
[2020-09-20] MEDS ORDERED: ALBUMIN 25% 100 ML IV ONE (15:45)
[2020-09-20] MEDS ORDERED: LIDOCAINE 1% HCL (LOCAL ANESTH.) INJ 20ML MDV ID ONE (17:45)
[2020-09-20] MEDS ORDERED: ACETAMINOPHEN 500 MG TAB PO PRN (18:30)
[2020-09-20] MEDS ORDERED: cefTRIAXone 1GM/50ML D5W 50 ML IV ONE (18:30)
[2020-09-20] MEDS ORDERED: LACTULOSE 20Gm/30ML SOLN PO PRN (18:30)
[2020-09-20] MEDS ORDERED: DEXTROSE (50%) 50ML SYRG IV PRN (18:30)
[2020-09-20] MEDS ORDERED: ALBUTEROL SULF 2.5 MG/0.5ML(0.5%) NEB SOLN NEB PRN (18:30)
[2020-09-20] MEDS ORDERED: ONDANSETRON HCL 4 MG/2 ML VIAL IV PRN (18:30)
[2020-09-20] MEDS ORDERED: LIDOCAINE 1% HCL (LOCAL ANESTH.) INJ 20ML MDV ONE ×2 (18:38→20:30)
[2020-09-20 19:00] LABS: Amylase 24 U/L (25-115); Lipase 67 U/L (73-393)
[2020-09-20 19:01] VITALS: BP 83/46
[2020-09-20] MEDS: NOREPINEPHRINE 8 MG/250ML KIT 250 ML IV SCH (20:15)
[2020-09-20] MEDS ORDERED: LIDOCAINE 2% (LOCAL ANESTH.) PF 5ml SDV ONE (20:27)
[2020-09-20 22:00] VITALS: BP 103/53
[2020-09-20] MEDS: ACCU-CHEK COMFORT CURVE STRIP VI SCH (22:00)
[2020-09-20] MEDS: InsuLIN REG 1unit/0.01ml Soln (100units/ml) SC SCH (22:00)
[2020-09-20] MEDS: DABIGATRAN 75 MG CAP PO SCH (22:00)
[2020-09-20] MEDS: traMADol HCL 50 MG TAB PO PRN (22:45)
[2020-09-20 23:00] VITALS: BP 104/56
[2020-09-20] MEDS ORDERED: dilTIAZem 25 MG/5 ML VIAL IV ONE (23:45)
[2020-09-20] MEDS ORDERED: DIGOXIN (250MCG/ML) 2 ML AMPULE IV ONE (23:45)
[2020-09-20] MEDS ORDERED: dilTIAZem 125mg/125ml BAG KIT 100 ML IV SCH (23:45)
[2020-09-20] MEDS ORDERED: DIGOXIN (250MCG/ML) 2 ML AMPULE ONE (23:59)
[2020-09-21] VITALS (68 sets, daily range): BP systolic 84–135; BP diastolic 29–71
[2020-09-21] MEDS: PHENYLEPHRINE IV 250 ML IV SCH ×3 (00:30→10:00)
[2020-09-21] MEDS: FAMOTIDINE (10MG/ML) 2ML VL IV SCH ×3 (01:12→11:04)
[2020-09-21] MEDS: CLINDAMYCIN 300MG IV 50 ML IV SCH ×4 (01:13→22:06)
[2020-09-21] MEDS: ATORVASTATIN 20 MG TAB PO SCH ×2 (01:14→22:06)
[2020-09-21] MEDS: ACCU-CHEK COMFORT CURVE STRIP VI SCH ×4 (05:49→22:07)
[2020-09-21] MEDS: InsuLIN REG 1unit/0.01ml Soln (100units/ml) SC SCH ×4 (06:30→22:00)
[2020-09-21 09:16] LABS: Basophils # (auto) 0.1 10 ^3/uL (0-0.2); Basophils % (auto) 0.5 % (0.0-2.0); Lymphocytes # (auto) 0.5 10 ^3/uL (0.4-5.4); Monocytes # (auto) 1.1 10 ^3/uL (0-1.3); Neutrophils # (auto) 10.3 10 ^3/uL (1.6-8.6); Nucleated Red Blood Cells % 0.2 %; White Blood Cell 12.2 10^3/uL (4.4-10.8)
[2020-09-21 09:18] LABS: Eosinophils # (auto) 0.2 10 ^3/uL (0-0.8); Eosinophils % (auto) 1.3 % (0.0-7.0); Hematocrit 32.8 % (41.0-53.0); Hemoglobin 10.5 g/dL (13.5-17.5); Lymphocytes % (auto) 4.4 % (10.0-50.0); Mean Corpuscular Hemoglobin 29.2 pg (28.0-32.0); Mean Corpuscular Hgb Conc. 31.8 g/dL (32.0-36.0); Mean Corpuscular Volume 91.6 fL (80.0-100.0); Monocytes % (auto) 9.2 % (0.0-12.0); Neutrophils % (auto) 84.6 % (37.0-80.0); Platelet Count (auto) 517 10^3/uL (140-450); Red Blood Cells 3.59 10^6/uL (4.5-5.90); Red Cell Distribution Width 15.9 % (11.8-14.3)
[2020-09-21 09:48] LABS: Albumin 2.4 g/dL (3.4-5.0); BUN/Creatinine Ratio 19.3; Bilirubin, Total 0.8 mg/dL (0.2-1.0); Calcium 8.4 mg/dL (8.5-10.1); Total Protein 7.6 g/dL (6.4-8.2)
[2020-09-21 10:11] LABS: Potassium 6.2 mmol/L (3.5-5.1)
[2020-09-21] MEDS: FUROSEMIDE 40 MG/4 ML VIAL IV SCH (11:03)
[2020-09-21] MEDS ORDERED: ALBUTEROL SULF 2.5 MG/0.5ML(0.5%) NEB SOLN NEB ONE (12:15)
[2020-09-21] MEDS ORDERED: DEXTROSE (50%) 50ML SYRG IV ONE (12:15)
[2020-09-21] MEDS ORDERED: FUROSEMIDE 40 MG/4 ML VIAL IV ONE (12:15)
[2020-09-21] MEDS ORDERED: InsuLIN REG 1unit/0.01ml Soln (100units/ml) IV ONE (12:15)
[2020-09-21] MEDS ORDERED: SODIUM BICARBONATE 8.4% INJ 50ML SYRINGE IV ONE (12:15)
[2020-09-21] MEDS ORDERED: SODIUM BICARBONATE 8.4 % INJ 50ML VIAL IV ONE (12:30)
[2020-09-21] MEDS: PHENYLEPHRINE INJ 40 MG in SODIUM CHL 0.9% 246 ML IV SCH (13:20)
[2020-09-21] MEDS: SODIUM BICARBONATE 50ML VIAL 150 ML in D5W 5% 1,000 ML IV SCH (13:30)
[2020-09-21] MEDS: SODIUM ZIRCONIUM CYCL 10 GM PAK PO SCH ×3 (14:04→22:06)
[2020-09-21] MEDS: DABIGATRAN 75 MG CAP PO SCH ×2 (14:07→22:07)
[2020-09-21] MEDS: NOREPINEPHRINE 8 MG/250ML KIT 250 ML IV SCH (17:29)
[2020-09-21 19:13] LABS: Urine Bacteria FEW /hpf (None Seen); Urine Blood Negative /uL (Negative); Urine Hyaline Cast FEW /lpf (0 - 2); Urine Specific Gravity 1.008 (1.001-1.035); Urine WBC 5 /hpf (0 - 3)
[2020-09-21 19:40] LABS: Amphetamine Screen, Urine POSITIVE (NEGATIVE); Barbiturate Scree,Urine NEGATIVE (NEGATIVE); Benzodiazephine Screen, Urine NEGATIVE (NEGATIVE); Cannabinoid Screen, Urine NEGATIVE (NEGATIVE); Cocaine Screen, Urine NEGATIVE (NEGATIVE); Opiate Scree,Urine NEGATIVE (NEGATIVE); Phencyclidine Screen, Urine NEGATIVE (NEGATIVE)
[2020-09-21] MEDS: cefTRIAXone 1GM/50ML D5W 50 ML IV SCH (20:50)
[2020-09-21 22:13] LABS: BUN/Creatinine Ratio 20.1; Calcium 8.5 mg/dL (8.5-10.1); Potassium 4.8 mmol/L (3.5-5.1)
[2020-09-21 22:45] LABS: Phosphorus 4.1 mg/dL (2.5-4.90)
[2020-09-21 23:02] LABS: Protein, Urine 34.3 mg/dL (0.0-11.9)
[2020-09-22] VITALS (85 sets, daily range): BP systolic 80–133; BP diastolic 38–72
[2020-09-22] MEDS: SODIUM BICARBONATE 50ML VIAL 150 ML in D5W 5% 1,000 ML IV SCH ×2
[2020-09-22 04:20] LABS: Basophils # (auto) 0.1 10 ^3/uL (0-0.2); Eosinophils # (auto) 0.3 10 ^3/uL (0-0.8); Monocytes % (auto) 9.8 % (0.0-12.0); Neutrophils % (auto) 80.5 % (37.0-80.0)
[2020-09-22 04:22] LABS: Basophils % (auto) 0.8 % (0.0-2.0); Eosinophils % (auto) 3.2 % (0.0-7.0); Hematocrit 30.1 % (41.0-53.0); Hemoglobin 9.8 g/dL (13.5-17.5); Lymphocytes # (auto) 0.6 10 ^3/uL (0.4-5.4); Lymphocytes % (auto) 5.7 % (10.0-50.0); Mean Corpuscular Hemoglobin 29.5 pg (28.0-32.0); Mean Corpuscular Hgb Conc. 32.8 g/dL (32.0-36.0); Mean Corpuscular Volume 90.1 fL (80.0-100.0); Neutrophils # (auto) 7.8 10 ^3/uL (1.6-8.6); Nucleated Red Blood Cells % 0.1 %; Platelet Count (auto) 495 10^3/uL (140-450); Red Blood Cells 3.34 10^6/uL (4.5-5.90); Red Cell Distribution Width 15.6 % (11.8-14.3); White Blood Cell 9.7 10^3/uL (4.4-10.8)
[2020-09-22 04:38] LABS: BUN/Creatinine Ratio 20.7; Potassium 4.8 mmol/L (3.5-5.1)
[2020-09-22] MEDS: PHENYLEPHRINE INJ 40 MG in SODIUM CHL 0.9% 246 ML IV SCH ×3 (05:00→15:37)
[2020-09-22] MEDS: SODIUM ZIRCONIUM CYCL 10 GM PAK PO SCH (05:52)
[2020-09-22] MEDS: ACCU-CHEK COMFORT CURVE STRIP VI SCH ×4 (06:07→21:30)
[2020-09-22] MEDS: CLINDAMYCIN 300MG IV 50 ML IV SCH (06:07)
[2020-09-22] MEDS: InsuLIN REG 1unit/0.01ml Soln (100units/ml) SC SCH ×4 (06:07→21:30)
[2020-09-22] MEDS: FAMOTIDINE (10MG/ML) 2ML VL IV SCH (10:03)
[2020-09-22] MEDS: FUROSEMIDE 40 MG/4 ML VIAL IV SCH (10:03)
[2020-09-22] MEDS: DABIGATRAN 75 MG CAP PO SCH ×2 (10:04→21:34)
[2020-09-22] MEDS: MORPHINE SULF INJ 2 MG/ML SYRINGE 1ML IV PRN (15:29)
[2020-09-22] MEDS: NOREPINEPHRINE 8 MG/250ML KIT 250 ML IV SCH (20:15)
[2020-09-22] MEDS: cefTRIAXone 1GM/50ML D5W 50 ML IV SCH (21:00)
[2020-09-22] MEDS: ATORVASTATIN 20 MG TAB PO SCH (21:34)
[2020-09-23] VITALS (93 sets, daily range): BP systolic 84–121; BP diastolic 41–69
[2020-09-23 03:53] LABS: Basophils # (auto) 0 10 ^3/uL (0-0.2); Basophils % (auto) 0.3 % (0.0-2.0); Eosinophils # (auto) 0.3 10 ^3/uL (0-0.8); Eosinophils % (auto) 3.2 % (0.0-7.0); Hemoglobin 9.6 g/dL (13.5-17.5); Lymphocytes # (auto) 0.3 10 ^3/uL (0.4-5.4); Lymphocytes % (auto) 3.2 % (10.0-50.0); Mean Corpuscular Hemoglobin 29.9 pg (28.0-32.0); Mean Corpuscular Hgb Conc. 33.3 g/dL (32.0-36.0); Mean Corpuscular Volume 89.8 fL (80.0-100.0); Monocytes # (auto) 0.9 10 ^3/uL (0-1.3); Monocytes % (auto) 8.4 % (0.0-12.0); Neutrophils # (auto) 9.2 10 ^3/uL (1.6-8.6); Neutrophils % (auto) 84.9 % (37.0-80.0); Platelet Count (auto) 425 10^3/uL (140-450); Red Blood Cells 3.23 10^6/uL (4.5-5.90); Red Cell Distribution Width 16.2 % (11.8-14.3); White Blood Cell 10.8 10^3/uL (4.4-10.8)
[2020-09-23 04:08] LABS: BUN/Creatinine Ratio 22.6; Calcium 7.2 mg/dL (8.5-10.1); Potassium 4.3 mmol/L (3.5-5.1)
[2020-09-23] MEDS: InsuLIN REG 1unit/0.01ml Soln (100units/ml) SC SCH (04:57)
[2020-09-23] MEDS: ACCU-CHEK COMFORT CURVE STRIP VI SCH (04:58)
[2020-09-23] MEDS: PHENYLEPHRINE INJ 40 MG in SODIUM CHL 0.9% 246 ML IV SCH (09:06)
[2020-09-23] MEDS: DIGOXIN 0.125 MG TAB PO SCH (09:45)
[2020-09-23] MEDS: FAMOTIDINE (10MG/ML) 2ML VL IV SCH (09:45)
[2020-09-23] MEDS: FUROSEMIDE 40 MG/4 ML VIAL IV SCH (09:45)
[2020-09-23] MEDS: DABIGATRAN 75 MG CAP PO SCH ×2 (09:46→22:03)
[2020-09-23] MEDS ORDERED: DIGOXIN (250MCG/ML) 2 ML AMPULE IV SCH (10:00)
[2020-09-23] MEDS: MORPHINE SULF INJ 2 MG/ML SYRINGE 1ML IV PRN ×3 (12:50→23:27)
[2020-09-23] MEDS: traMADol HCL 50 MG TAB PO PRN ×2 (13:51→22:03)
[2020-09-23 18:17] LABS: Band Neutrophils % (manual) 0; Basophils % (manual) 0 (0.0-2.0); Blast Cells 0; Metamyelocytes % 0; Myelocytes % 0; Promyelocytes % 0; Reactive Lymphocytes 0
[2020-09-23 18:30] LABS: Nucleated Red Blood Cells % 0.1 %; Platelet Count (auto) 416 10^3/uL (140-450)
[2020-09-23 20:14] LABS: White Blood Cell 8.6 10^3/uL (4.4-10.8)
[2020-09-23 20:15] LABS: Eosinophils % (manual) 3 (0-7); Lymphocytes % (manual) 2 (10.0-50.0); Monocytes % (manual) 7 (0-12)
[2020-09-23] MEDS: NOREPINEPHRINE 8 MG/250ML KIT 250 ML IV SCH (20:15)
[2020-09-23] MEDS: cefTRIAXone 1GM/50ML D5W 50 ML IV SCH (20:47)
[2020-09-23] MEDS: LINEZOLID 600MG/300ML 300 ML IV SCH (22:02)
[2020-09-23] MEDS: ATORVASTATIN 20 MG TAB PO SCH (22:02)
[2020-09-23] MEDS: DAKINS HALF STR 0.25% (NaHypochlorite) 473 ML TOPICAL SOL TOP SCH (22:03)
[2020-09-24] VITALS (93 sets, daily range): BP systolic 81–141; BP diastolic 42–78
[2020-09-24 04:00] LABS: Basophils # (auto) 0 10 ^3/uL (0-0.2); Basophils % (auto) 0.3 % (0.0-2.0); Eosinophils # (auto) 0.3 10 ^3/uL (0-0.8); Eosinophils % (auto) 3.9 % (0.0-7.0); Hematocrit 30.8 % (41.0-53.0); Hemoglobin 10.2 g/dL (13.5-17.5); Lymphocytes # (auto) 0.3 10 ^3/uL (0.4-5.4); Lymphocytes % (auto) 4.2 % (10.0-50.0); Mean Corpuscular Hemoglobin 29.7 pg (28.0-32.0); Mean Corpuscular Hgb Conc. 33.2 g/dL (32.0-36.0); Mean Corpuscular Volume 89.4 fL (80.0-100.0); Monocytes # (auto) 0.8 10 ^3/uL (0-1.3); Monocytes % (auto) 10.2 % (0.0-12.0); Neutrophils # (auto) 6.5 10 ^3/uL (1.6-8.6); Neutrophils % (auto) 81.4 % (37.0-80.0); Nucleated Red Blood Cells % 0.1 %; Platelet Count (auto) 396 10^3/uL (140-450); Red Blood Cells 3.44 10^6/uL (4.5-5.90); Red Cell Distribution Width 15.6 % (11.8-14.3); White Blood Cell 7.9 10^3/uL (4.4-10.8)
[2020-09-24 04:19] LABS: BUN/Creatinine Ratio 22.4; Calcium 8.3 mg/dL (8.5-10.1); Potassium 4.5 mmol/L (3.5-5.1)
[2020-09-24] MEDS ORDERED: levoFLOXacin 750MG 150 ML IV ONE (10:00)
[2020-09-24] MEDS: LINEZOLID 600MG/300ML 300 ML IV SCH ×2 (10:01→22:20)
[2020-09-24] MEDS: DAKINS HALF STR 0.25% (NaHypochlorite) 473 ML TOPICAL SOL TOP SCH ×2 (10:01→22:00)
[2020-09-24] MEDS: FAMOTIDINE (10MG/ML) 2ML VL IV SCH (10:01)
[2020-09-24] MEDS: FUROSEMIDE 40 MG/4 ML VIAL IV SCH (10:01)
[2020-09-24] MEDS: DABIGATRAN 75 MG CAP PO SCH ×2 (10:02→22:21)
[2020-09-24] MEDS: levoFLOXacin 750MG 150 ML IV SCH (12:24)
[2020-09-24] MEDS: ATORVASTATIN 20 MG TAB PO SCH (22:21)
[2020-09-24] MEDS: MORPHINE SULF INJ 2 MG/ML SYRINGE 1ML IV PRN (22:22)
[2020-09-25] VITALS (49 sets, daily range): BP systolic 85–104; BP diastolic 47–59
[2020-09-25 03:58] LABS: Basophils # (auto) 0 10 ^3/uL (0-0.2); Basophils % (auto) 0.6 % (0.0-2.0); Eosinophils # (auto) 0.3 10 ^3/uL (0-0.8); Eosinophils % (auto) 5.2 % (0.0-7.0); Hematocrit 31.5 % (41.0-53.0); Hemoglobin 10.3 g/dL (13.5-17.5); Lymphocytes # (auto) 0.3 10 ^3/uL (0.4-5.4); Lymphocytes % (auto) 5.1 % (10.0-50.0); Mean Corpuscular Hemoglobin 29.2 pg (28.0-32.0); Mean Corpuscular Hgb Conc. 32.6 g/dL (32.0-36.0); Mean Corpuscular Volume 89.5 fL (80.0-100.0); Monocytes # (auto) 0.7 10 ^3/uL (0-1.3); Monocytes % (auto) 11.9 % (0.0-12.0); Neutrophils # (auto) 4.6 10 ^3/uL (1.6-8.6); Neutrophils % (auto) 77.2 % (37.0-80.0); Nucleated Red Blood Cells % 0.2 %; Platelet Count (auto) 336 10^3/uL (140-450); Red Blood Cells 3.52 10^6/uL (4.5-5.90); Red Cell Distribution Width 15.6 % (11.8-14.3); White Blood Cell 5.9 10^3/uL (4.4-10.8)
[2020-09-25 04:20] LABS: Potassium 4.7 mmol/L (3.5-5.1)
[2020-09-25 04:25] LABS: BUN/Creatinine Ratio 21.6
[2020-09-25] MEDS: FAMOTIDINE (10MG/ML) 2ML VL IV SCH (08:53)
[2020-09-25] MEDS: DIGOXIN 0.125 MG TAB PO SCH (08:53)
[2020-09-25] MEDS: DABIGATRAN 75 MG CAP PO SCH ×2 (08:54→21:53)
[2020-09-25] MEDS: LINEZOLID 600MG/300ML 300 ML IV SCH ×2 (08:54→21:52)
[2020-09-25] MEDS: FUROSEMIDE 40 MG/4 ML VIAL IV SCH ×2 (09:05→11:59)
[2020-09-25] MEDS: DAKINS HALF STR 0.25% (NaHypochlorite) 473 ML TOPICAL SOL TOP SCH (09:06)
[2020-09-25] MEDS: MORPHINE SULF INJ 2 MG/ML SYRINGE 1ML IV PRN ×3 (09:42→22:41)
[2020-09-25] MEDS ORDERED: levoFLOXacin 750MG 150 ML IV SCH (10:00)
[2020-09-25] MEDS: levoFLOXacin 750MG 150 ML IV SCH (11:59)
[2020-09-25] MEDS: PHENYLEPHRINE INJ 40 MG in SODIUM CHL 0.9% 246 ML IV SCH (16:05)
[2020-09-25] MEDS: ATORVASTATIN 20 MG TAB PO SCH (21:53)
[2020-09-26] VITALS (22 sets, daily range): BP systolic 94–109; BP diastolic 47–65
[2020-09-26] MEDS: DAKINS HALF STR 0.25% (NaHypochlorite) 473 ML TOPICAL SOL TOP SCH ×3 (00:59→21:54)
[2020-09-26 04:34] LABS: Basophils # (auto) 0 10 ^3/uL (0-0.2); Basophils % (auto) 0.4 % (0.0-2.0); Eosinophils # (auto) 0.3 10 ^3/uL (0-0.8); Hematocrit 30.6 % (41.0-53.0); Lymphocytes # (auto) 0.4 10 ^3/uL (0.4-5.4); Lymphocytes % (auto) 5.7 % (10.0-50.0); Mean Corpuscular Hemoglobin 28.9 pg (28.0-32.0); Mean Corpuscular Hgb Conc. 32.6 g/dL (32.0-36.0); Mean Corpuscular Volume 88.7 fL (80.0-100.0); Monocytes # (auto) 0.7 10 ^3/uL (0-1.3); Monocytes % (auto) 10.1 % (0.0-12.0); Neutrophils # (auto) 5.5 10 ^3/uL (1.6-8.6); Neutrophils % (auto) 79.8 % (37.0-80.0); Platelet Count (auto) 333 10^3/uL (140-450); Red Blood Cells 3.45 10^6/uL (4.5-5.90); Red Cell Distribution Width 15.7 % (11.8-14.3); White Blood Cell 6.9 10^3/uL (4.4-10.8)
[2020-09-26 04:47] LABS: BUN/Creatinine Ratio 19.3; Calcium 7.4 mg/dL (8.5-10.1); Potassium 4.3 mmol/L (3.5-5.1)
[2020-09-26] MEDS: PHENYLEPHRINE INJ 40 MG in SODIUM CHL 0.9% 246 ML IV SCH (08:55)
[2020-09-26] MEDS: FAMOTIDINE (10MG/ML) 2ML VL IV SCH ×2 (09:14→21:36)
[2020-09-26] MEDS: DABIGATRAN 75 MG CAP PO SCH ×2 (09:14→21:54)
[2020-09-26] MEDS: FUROSEMIDE 40 MG/4 ML VIAL IV SCH (09:14)
[2020-09-26] MEDS: LINEZOLID 600MG/300ML 300 ML IV SCH ×2 (09:15→21:36)
[2020-09-26] MEDS: MORPHINE SULF INJ 2 MG/ML SYRINGE 1ML IV PRN ×2 (10:08→21:37)
[2020-09-26] MEDS: levoFLOXacin 750MG 150 ML IV SCH (11:41)
[2020-09-26] MEDS: ATORVASTATIN 20 MG TAB PO SCH (21:36)
[2020-09-27 04:55] VITALS: BP 103/61
[2020-09-27] MEDS: MORPHINE SULF INJ 2 MG/ML SYRINGE 1ML IV PRN (05:49)
[2020-09-27 07:07] LABS: Basophils # (auto) 0 10 ^3/uL (0-0.2); Basophils % (auto) 0.5 % (0.0-2.0); Eosinophils # (auto) 0.3 10 ^3/uL (0-0.8); Eosinophils % (auto) 3.4 % (0.0-7.0); Hematocrit 31.9 % (41.0-53.0); Hemoglobin 10.4 g/dL (13.5-17.5); Lymphocytes # (auto) 0.5 10 ^3/uL (0.4-5.4); Mean Corpuscular Hemoglobin 28.8 pg (28.0-32.0); Mean Corpuscular Hgb Conc. 32.6 g/dL (32.0-36.0); Mean Corpuscular Volume 88.2 fL (80.0-100.0); Monocytes # (auto) 0.6 10 ^3/uL (0-1.3); Monocytes % (auto) 8.2 % (0.0-12.0); Neutrophils # (auto) 6.2 10 ^3/uL (1.6-8.6); Neutrophils % (auto) 81.9 % (37.0-80.0); Nucleated Red Blood Cells % 0.1 %; Platelet Count (auto) 337 10^3/uL (140-450); Red Blood Cells 3.61 10^6/uL (4.5-5.90); Red Cell Distribution Width 15.4 % (11.8-14.3); White Blood Cell 7.6 10^3/uL (4.4-10.8)
[2020-09-27 07:28] LABS: Potassium 3.9 mmol/L (3.5-5.1)
[2020-09-27 07:34] LABS: BUN/Creatinine Ratio 15.8; Calcium 7.9 mg/dL (8.5-10.1); Magnesium 1.7 mg/dL (1.6-2.6)
[2020-09-27 09:20] VITALS: BP 94/57
[2020-09-27] MEDS: FAMOTIDINE (10MG/ML) 2ML VL IV SCH ×2 (10:26→22:29)
[2020-09-27] MEDS: FUROSEMIDE 40 MG/4 ML VIAL IV SCH (10:26)
[2020-09-27] MEDS: DABIGATRAN 75 MG CAP PO SCH ×2 (10:27→22:30)
[2020-09-27] MEDS: LINEZOLID 600MG/300ML 300 ML IV SCH ×2 (10:27→22:29)
[2020-09-27 12:52] VITALS: BP 102/62
[2020-09-27] MEDS ORDERED: ALPRAZolam 0.5 MG TAB PO ONE (13:00)
[2020-09-27] MEDS: levoFLOXacin 750MG 150 ML IV SCH (16:30)
[2020-09-27] MEDS: DAKINS HALF STR 0.25% (NaHypochlorite) 473 ML TOPICAL SOL TOP SCH ×2 (16:30→22:31)
[2020-09-27 17:05] VITALS: BP 105/63
[2020-09-27] MEDS ORDERED: MAGNESIUM SULFATE 1GM/100ML 100 ML IV ONE (18:00)
[2020-09-27 22:00] VITALS: BP 101/48
[2020-09-27] MEDS: ALPRAZolam 0.5 MG TAB PO SCH (22:00)
[2020-09-27] MEDS: ATORVASTATIN 20 MG TAB PO SCH (22:30)
[2020-09-27] MEDS: traMADol HCL 50 MG TAB PO PRN (22:56)
[2020-09-28 05:00] VITALS: BP 110/67
[2020-09-28 06:14] LABS: Basophils # (auto) 0 10 ^3/uL (0-0.2); Basophils % (auto) 0.4 % (0.0-2.0); Eosinophils # (auto) 0.2 10 ^3/uL (0-0.8); Eosinophils % (auto) 3.3 % (0.0-7.0); Hematocrit 30.3 % (41.0-53.0); Hemoglobin 10.1 g/dL (13.5-17.5); Lymphocytes # (auto) 0.5 10 ^3/uL (0.4-5.4); Lymphocytes % (auto) 7.1 % (10.0-50.0); Mean Corpuscular Hemoglobin 29.2 pg (28.0-32.0); Mean Corpuscular Hgb Conc. 33.4 g/dL (32.0-36.0); Mean Corpuscular Volume 87.4 fL (80.0-100.0); Monocytes # (auto) 0.4 10 ^3/uL (0-1.3); Monocytes % (auto) 6.6 % (0.0-12.0); Neutrophils # (auto) 5.3 10 ^3/uL (1.6-8.6); Neutrophils % (auto) 82.6 % (37.0-80.0); Nucleated Red Blood Cells % 0.1 %; Platelet Count (auto) 323 10^3/uL (140-450); Red Blood Cells 3.47 10^6/uL (4.5-5.90); Red Cell Distribution Width 15.5 % (11.8-14.3); White Blood Cell 6.4 10^3/uL (4.4-10.8)
[2020-09-28 06:32] LABS: Potassium 3.6 mmol/L (3.5-5.1)
[2020-09-28 06:36] LABS: Calcium 7.6 mg/dL (8.5-10.1); Magnesium 2.1 mg/dL (1.6-2.6)
[2020-09-28 08:38] VITALS: BP 110/66
[2020-09-28] MEDS: ALPRAZolam 0.5 MG TAB PO SCH (10:00)
[2020-09-28] MEDS: DAKINS HALF STR 0.25% (NaHypochlorite) 473 ML TOPICAL SOL TOP SCH (10:00)
[2020-09-28] MEDS: FUROSEMIDE 40 MG/4 ML VIAL IV SCH (10:00)
[2020-09-28] MEDS ORDERED: LINE1TAB6 PO (10:18)
[2020-09-28] MEDS ORDERED: LEVO750T64 PO (10:18)
[2020-09-28] MEDS: DABIGATRAN 75 MG CAP PO SCH (10:49)
[2020-09-28] MEDS: LINEZOLID 600MG/300ML 300 ML IV SCH (10:50)
[2020-09-28] MEDS: FAMOTIDINE (10MG/ML) 2ML VL IV SCH (10:50)
[2020-09-28] MEDS: DIGOXIN 0.125 MG TAB PO SCH (10:51)
[2020-09-28] MEDS: traMADol HCL 50 MG TAB PO PRN (10:52)
[2020-09-28 12:22] VITALS: BP 110/66
[2020-09-28 12:37] VITALS: BP 114/70
[2020-09-28] MEDS: levoFLOXacin 750MG 150 ML IV SCH (12:50)
[2020-09-29] MEDS ORDERED: FAMOTIDINE (10MG/ML) 2ML VL IV SCH (10:00)
== END 2020-09-28 15:54 | disposition home health service (06) | DRG 871 ==
LOC: ER 00:51 → EDBD 00:51 → TELE 00:52 → ICU WEST 21:39 → TELE-EAST 09-26 20:26
PROVIDERS: ADMIT Internal Medicine; ATTEND Internal Medicine Pulmonary Disease
PROC: 0W9930Z Drainage of Right Pleural Cavity with Drainage Device, Percutaneous Approach (ICD-10-PCS; 2020-09-20)
PROC: 02HV33Z Insertion of Infusion Device into Superior Vena Cava, Percutaneous Approach (ICD-10-PCS; principal; 2020-09-21)
DX: A41.9 Sepsis, unspecified organism (principal); I50.23 Acute on chronic systolic (congestive) heart failure; J96.01 Acute respiratory failure with hypoxia; J18.9 Pneumonia, unspecified organism; R65.21 Severe sepsis with septic shock; N17.9 Acute kidney failure, unspecified; L03.115 Cellulitis of right lower limb; I13.0 Hypertensive heart and chronic kidney disease with heart failure and stage 1 through stage 4 chronic kidney disease, or unspecified chronic kidney disease; J91.8 Pleural effusion in other conditions classified elsewhere; I48.20 Chronic atrial fibrillation, unspecified; J93.9 Pneumothorax, unspecified; L97.919 Non-pressure chronic ulcer of unspecified part of right lower leg with unspecified severity; K80.20 Calculus of gallbladder without cholecystitis without obstruction; N18.30 Chronic kidney disease, stage 3 unspecified; E87.5 Hyperkalemia; E66.9 Obesity, unspecified; Z20.822 Contact with and (suspected) exposure to COVID-19; L97.529 Non-pressure chronic ulcer of other part of left foot with unspecified severity; I27.20 Pulmonary hypertension, unspecified; D63.8 Anemia in other chronic diseases classified elsewhere; E11.22 Type 2 diabetes mellitus with diabetic chronic kidney disease; K74.60 Unspecified cirrhosis of liver; E11.621 Type 2 diabetes mellitus with foot ulcer; F15.10 Other stimulant abuse, uncomplicated; Z91.19 Patient's noncompliance with other medical treatment and regimen; Z90.49 Acquired absence of other specified parts of digestive tract; Z68.33 Body mass index [BMI] 33.0-33.9, adult
CPT/HCPCS: 36415; 36600; 71045; 71250; 74176; 76705; 76775; 80048; 80053; 80061; 80307; 81001; 82150; 82550; 82570; 82805; 82962; 83036; 83605; 83615; 83690; 83735; 83880; 83986; 84100; 84156; 84300; 84443; 84484; 85025; 85048; 85379; 85610; 85730; 87040; 87070; 87077; 87081; 87186; 87205; 87426; 89051; 93005; 93306; 93925; 93970; 94640; 96365; 96375; G0378; J0696; J1956; J2001; J2405; J3490; P9047